=== PATIENT | female | born 1985 | race Caucasian/White ===

== ENCOUNTER 2017-05-29 10:00 | Emergency (ER) | payer MEDICAID ==
[~2017-05-29] VITALS: Ht 175.3 cm; Wt 76.0 kg
[2017-05-29] MEDS ORDERED: LORAZEPAM 1MG TABLET PO ONE (10:30)
[2017-05-29 12:05] VITALS: BP 122/56
== END 2017-05-29 12:08 | disposition home or self-care (01) ==
LOC: ER 10:57
DX: F41.9 Anxiety disorder, unspecified (principal); R45.1 Restlessness and agitation; R45.83 Excessive crying of child, adolescent or adult
CPT/HCPCS: 93005; 99283